=== PATIENT | female | born 1935 | race Two or more races ===

== ENCOUNTER 2023-03-31 17:05 | Inpatient (IN) | payer OTHER ==
[~2023-03-31] VITALS: Ht 157.5 cm; Wt 62.6 kg
--- NOTE | 2023-03-31 17:14 | NUR ---
SE RECIBE PACIENTE FEMENINA ALERTA Y ORIENTADA X 3 ESFERAS EN AMBULANCIA EN COMPANIA DE PARAMEDICOS. PTE FUE TRASLADADA DEL [facility] POR KEVEN FRACTURA DE CADERA IZQUIERDA.
--- NOTE | 2023-03-31 19:19 | NUR ---
A EVALUA PTE. SE EDUCA SOBRE TX MEDICO, REFIERE ENTENDER. SE REALIZAN MUESTRAS DE LABORATORIO BAJO MEDIDAS ASEPTICAS. SE CANULA VENA EN BRAZO DERECHO AREA JUNE DE EDEMA Y ERITEMA. SE COORDINA PAMELA X. SE REALIZA EKG.
[2023-04-01] MEDS ORDERED: IRBESARTAN300 MG (08:33)
[2023-04-01] MEDS ORDERED: CICLOPIROX15 GM (08:33)
[2023-04-01] MEDS ORDERED: INSULIN GL100 UNIT/3 (08:33)
[2023-04-01] MEDS ORDERED: AMLODIPINE BESYL5 MG (08:34)
[2023-04-01] MEDS ORDERED: CLOBETASOL PRO118 ML (08:34)
[2023-04-01] MEDS ORDERED: ATORVASTATIN CA20 MG (08:34)
[2023-04-01] MEDS ORDERED: GABAPENTIN100 M2 (08:34)
[2023-04-01] MEDS ORDERED: GLIPIZIDE ER5 MG (08:34)
[2023-04-01] MEDS ORDERED: TRADJENTA5 MG (08:34)
[2023-04-04] MEDS ORDERED: INTEGRA F CAPS1 EACH PO (07:44)
[2023-04-04] MEDS ORDERED: XARELTO10 MG PO (07:45)
[2023-04-04] MEDS ORDERED: ATORVASTATIN CA20 MG PO (07:45)
[2023-04-04] MEDS ORDERED: AMLODIPINE BESYL5 MG PO (07:45)
[2023-04-04] MEDS ORDERED: GABAPENTIN300 MG PO (07:46)
[2023-04-04] MEDS ORDERED: PAIN RELIEVER500 M2 PO (07:46)
[2023-04-04] MEDS ORDERED: IRBESARTAN300 MG PO (07:46)
[2023-04-04] MEDS ORDERED: OXYC1TAB9 PO (07:47)
[2023-04-04] MEDS ORDERED: GLIPIZIDE ER5 MG PO (07:47)
[2023-04-04] MEDS ORDERED: TRADJENTA5 MG PO (07:48)
[2023-04-04] MEDS ORDERED: NASAL MIST126 ML NASAL (07:50)
[2023-04-04] MEDS ORDERED: WALKER {1, null} (07:50)
== END 2023-04-04 14:22 | DRG 482 ==
LOC: ER 17:05 → SURH 22:44
PROVIDERS: ADMIT Orthopaedic Surgery; ATTEND Orthopaedic Surgery
PROC: 0QS706Z Reposition Left Upper Femur with Intramedullary Internal Fixation Device, Open Approach (ICD-10-PCS; principal; 2023-04-02 18:15)
PROC: 30233N1 Transfusion of Nonautologous Red Blood Cells into Peripheral Vein, Percutaneous Approach (ICD-10-PCS; 2023-04-03)
DX: S72.142A Displaced intertrochanteric fracture of left femur, initial encounter for closed fracture (principal); D64.9 Anemia, unspecified; E11.40 Type 2 diabetes mellitus with diabetic neuropathy, unspecified; W01.0XXA Fall on same level from slipping, tripping and stumbling without subsequent striking against object, initial encounter; Z79.4 Long term (current) use of insulin; I10 Essential (primary) hypertension; E78.5 Hyperlipidemia, unspecified; M19.90 Unspecified osteoarthritis, unspecified site